=== PATIENT | female | born 1965 | race Caucasian/White ===

== ENCOUNTER 2017-12-01 20:42 | Emergency (ER) | payer SELFPAY ==
[2017-12-01 20:49] VITALS: BP 166/72; BMI 27.4
--- NOTE | 2017-12-01 22:55 | DR.GENAD ---
HPI - PCP Primary Care Physician: ORIN ADAIR - Complaint/Symptoms Chief Complaint Doctors Comments: Patient admits to menstrual cycle for two weeks. Heavy. 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 Chief Complaint:: PERIOD X 2 WEEKS; CRAMPING TO LOWER ABDOMEN AND BACK; NO OB DR ; CAN'T REMEMBER LAST TIME SHE HAD PELVIC EXAM Self Treatment fo Chief Complaint: NO TREATMENT - Source History Provided: Patient - Mode of Arrival Mode of Arrival: Ambulatory - Timing Onset of Chief Complaint: 11/17/17 PMH - PMH Past Medical History: Yes Past Medical History: Anxiety, Diabetes, Hypertension Past Surgical History: Yes Surgical History: - Family History History of Family Medical Conditions: No Family Medical History: Diabetes Mellitus, [place], Hypertension - Social History Alcohol Use: None Do you use any recreational Drugs:: No Lives With: Alone Lives Where: Home - infectious screening In the last 2 months have you had wt loss of >10#?: NO Have you had fever, night sweats or hemotysis?: No Have you traveled outside the country in the last 6 months?: No Isolation: Standard ROS - Review of Systems Eyes: No Symptoms Reported ENTM: No Symptoms Reported Respiratoy: No Symptoms Reported Cardiovascular: No Symptoms Reported Gastrointestinal/Abdominal: No Symptoms Reported Genitourinary: No Symptoms Reported Neurological: No Symptoms Reported Musculoskeletal: No Symptoms Reported Integumentary: No Symptoms Reported Hematologic/Lymphatic: No Symptoms Reported Endocrine: No Symptoms Reported PE - Vital Signs Vitals: Temperature 98.6 F Pulse Rate 73 Respiratory Rate 22 Blood Pressure 166/72 O2 Sat by Pulse Oximetry 98 - General Limitations: No Limitations General Appearance: Alert, In No Apparent Distress - Head Head Exam: Normal Inspection, Atraumatic - Eyes Eye exam: Normal Appearance, PERRL, EOMI - ENT ENT Exam: Normal Exam External Ear Exam: Normal External Inspection TM/Canal Exam: Bilateral Normal Nose Exam: Normal Nose Exam Mouth Exam: Normal Inspection Throat Exam: Normal Inspection - Neck Neck Exam: Normal Inspection, Full ROM - Chest Chest Inspection: Normal Inspection - Respiratory Respiratory Exam: Normal Lung Sounds Bilat Respiratory Exam: Bilateral Clear to Auscultation - Cardiovascular Cardiovascular Exam: Regular Rate, Normal Rhythm - Abdominal Exam Abdominal Exam: Normal Inspection, Normal Bowel Sounds Abdominal Tenderness: negative: RUQ, RLQ, LUQ, LLQ, Epigastrium, Suprapubic, Diffuse, Mild, Moderate, Severe, Other - Extremities Extremities Exam: Normal Inspection, Full ROM - Back Back Exam: Normal Inspection, Full ROM - Neurologic Neurological Exam: Alert, Oriented X3, CN II-XII Intact - Psychiatric Psychiatric Exam: Normal Affect, Normal Mood - Skin Skin Exam: Warm, Dry, Intact ROR - Labs Reviewed Result Diagrams: 12/01/17 23:00 12/01/17 23:00 Laboratory: WBC 9.9 X10^3/uL (3.6-10.0) 12/01/17 23:00 RBC 5.38 X10^6/uL (3.5-5.4) 12/01/17 23:00 Hgb 12.4 g/dL (12.0-16.0) 12/01/17 23:00 Hct 38.9 % (36.0-47.0) 12/01/17 23:00 MCV 72.2 fL (80.0-100.0) L 12/01/17 23:00 MCH 23.0 pg (27.0-34.0) L 12/01/17 23:00 MCHC 31.9 g/dL (33.0-35.0) L 12/01/17 23:00 RDW 17.4 % (11.6-16.5) H 12/01/17 23:00 Plt Count 188 X10^3/uL (150.0-450.0) 12/01/17 23:00 Plt Count Comment Adequate (ADEQUATE) 12/01/17 23:00 MPV 10.9 fL (7.4-11.0) 12/01/17 23:00 Neut % 55.5 % (42.0-75.0) 12/01/17 23:00 Lymph % 32.9 % (21.0-51.0) 12/01/17 23:00 Wilson % 6.5 % (0.0-13.0) 12/01/17 23:00 Eos % 3.8 % (0.9-2.9) H 12/01/17 23:00 Baso % 1.3 % (0.2-1.0) H 12/01/17 23:00 Neut # 5.5 x10^3/uL (2.2-4.8) H 12/01/17 23:00 Lymph # 3.3 X10^3/uL (1.3-2.9) H 12/01/17 23:00 Wilson # 0.6 x10^3/uL (0.3-0.8) 12/01/17 23:00 Eos # 0.4 x10^3/uL (0.0-0.2) H 12/01/17 23:00 Baso # 0.1 X10^3/uL (0.0-0.1) 12/01/17 23:00 Absolute Nucleated RBC 0.1 /100WBC 12/01/17 23:00 Plt Morphology Comment Normal (NORMAL) 12/01/17 23:00 RBC Morphology Abnormal (NORMAL) A 12/01/17 23:00 Hypochromasia 1+ A 12/01/17 23:00 INR Target Range - 12/01/17 23:00 INR 1.08 (0.8-1.3) 12/01/17 23:00 PTT 27.4 SECONDS (22.9-36.5) 12/01/17 23:00 PTT Comment - 12/01/17 23:00 Sodium 135 mmol/L (136-145) L 12/01/17 23:00 Corrected Sodium 141 mmol/L (136-145) 12/01/17 23:00 Potassium 4.1 mmol/L (3.5-5.1) 12/01/17 23:00 Chloride 100 mmol/L (98-107) 12/01/17 23:00 Carbon Dioxide 27.1 mmol/L (21-32) 12/01/17 23:00 BUN 12 mg/dL (7-18) 12/01/17 23:00 Creatinine 0.93 mg/dL (0.55-1.02) 12/01/17 23:00 Est GFR (MDRD) Af Amer > 60 (>60) 12/01/17 23:00 Est GFR (MDRD) Non-Af > 60 (>60) 12/01/17 23:00 Glucose 362 mg/dL (65-99) H 12/01/17 23:00 Calcium 8.5 mg/dL (8.5-10.1) 12/01/17 23:00 - Diagnosis Discharge Problem: Dysfunctional uterine bleeding - Discharge Plan Condition: Stable - Follow ups/Referrals Follow ups/Referrals: MEMO ADAIR [Primary Care Provider] - 3 days - Instructions
[2017-12-01 23:23] LABS: BASOPHILS # (AUTO) 0.1 X10^3/uL (0.0-0.1); BASOPHILS % (AUTO) 1.3 % (0.2-1.0); EOSINOPHILS # (AUTO) 0.4 x10^3/uL (0.0-0.2); EOSINOPHILS % (AUTO) 3.8 % (0.9-2.9); HEMATOCRIT 38.9 % (36.0-47.0); HEMOGLOBIN 12.4 g/dL (12.0-16.0); LYMPHOCYTES # (AUTO) 3.3 X10^3/uL (1.3-2.9); LYMPHOCYTES % (AUTO) 32.9 % (21.0-51.0); MEAN CORPUSCULAR HGB CONC 31.9 g/dL (33.0-35.0); MEAN CORPUSCULAR VOLUME 72.2 fL (80.0-100.0); MEAN PLATELET VOLUME 10.9 fL (7.4-11.0); MONOCYTES # (AUTO) 0.6 x10^3/uL (0.3-0.8); MONOCYTES % (AUTO) 6.5 % (0.0-13.0); NEUTROPHILS # (AUTO) 5.5 x10^3/uL (2.2-4.8); NEUTROPHILS % (AUTO) 55.5 % (42.0-75.0); PLATELET COUNT 188 X10^3/uL (150.0-450.0); RED BLOOD COUNT 5.38 X10^6/uL (3.5-5.4); RED CELL DISTRIBUTION WIDTH 17.4 % (11.6-16.5); WHITE BLOOD COUNT 9.9 X10^3/uL (3.6-10.0)
[2017-12-01 23:39] LABS: BLOOD UREA NITROGEN 12 mg/dL (7-18); CALCIUM 8.5 mg/dL (8.5-10.1); CARBON DIOXIDE 27.1 mmol/L (21-32); CHLORIDE 100 mmol/L (98-107); COR NA(FOR HYPERGLY) 141 mmol/L (136-145); CREATININE 0.93 mg/dL (0.55-1.02); SODIUM 135 mmol/L (136-145); eGFR BLACK RACES > 60 (>60); eGFR NON BLACK RACES > 60 (>60)
[2017-12-01 23:43] LABS: HYPOCHROMASIA 1+; PLATELET MORPHOLOGY COMMENT NORMAL (NORMAL)
== END 2017-12-02 00:32 | disposition home or self-care (01) ==
LOC: ER 20:51
DX: N93.8 Other specified abnormal uterine and vaginal bleeding (principal)
CPT/HCPCS: 36415; 80048; 85025; 85610; 85730; 99282

== ENCOUNTER 2018-01-13 20:19 | Emergency (ER) | payer SELFPAY ==
[2018-01-13 20:24] VITALS: BMI 27.4
[2018-01-13] MEDS ORDERED: NORFLEX INJ IM ONE (21:35)
[2018-01-13] MEDS ORDERED: TORADOL 60 MG VIAL IM ONE (21:35)
--- NOTE | 2018-01-13 21:37 | DR.GENAD ---
HPI - Complaint/Symptoms Chief Complaint:: PT C/O LT SHOULDER AND LOWER BACK PAIN. ONSET OVER A MONTH. DENIES INJURY. Self Treatment fo Chief Complaint: T - Source History Provided: Patient - Mode of Arrival Mode of Arrival: Ambulatory - Timing Onset of Chief Complaint: 01/13/18 PMH - PMH Past Medical History: Yes Past Medical History: Anxiety, Diabetes, Hypertension Past Surgical History: Yes Surgical History: - Family History History of Family Medical Conditions: Yes Family Medical History: Diabetes Mellitus, [place], Hypertension - Social History Do you use any recreational Drugs:: No - infectious screening Have you traveled outside the country in the last 6 months?: No PE - Vital Signs Vitals: Temperature 98.3 F Pulse Rate 96 Respiratory Rate 18 Blood Pressure 144/68 O2 Sat by Pulse Oximetry 99 - Diagnosis Discharge Problem: Shoulder sprain Qualifiers: Encounter type: initial encounter Shoulder sprain type: other part of shoulder region Laterality: left Qualified Code(s): S43.492A - Other sprain of left shoulder joint, initial encounter Strain of thoracic spine Qualifiers: Encounter type: initial encounter Qualified Code(s): S29.019A - Strain of muscle and tendon of unspecified wall of thorax, initial encounter Back pain Qualifiers: Back pain location: thoracic back pain Chronicity: acute Back pain laterality: bilateral Qualified Code(s): M54.6 - Pain in thoracic spine - Discharge Plan Condition: Stable Prescriptions: Cyclobenzaprine HCl [FLEXERIL 10 MG *] 10 mg PO TID #20 tab Ibuprofen [MOTRIN TAB 800 MG *] 800 mg PO Q8H PRN #30 tab PRN Reason: Pain/Inflammation - Follow ups/Referrals Follow ups/Referrals: MEMO ADAIR [Primary Care Provider] - 3 days - Instructions Additional Instructions: RETURN TO ED IF WORSE.
[2018-01-13] MEDS ORDERED: TORADOL 60 MG VIAL ONE (21:59)
[2018-01-13] MEDS ORDERED: NORFLEX INJ ONE (21:59)
--- NOTE | 2018-01-13 22:09 | RAD ---
Three views of the left shoulder. Indication: Left shoulder pain Findings: No acute fracture dislocation within the left shoulder. AC and glenohumeral joint spaces ar e preserved. There is heterotopic ossification along the undersurface of the distal clavicle at the a ttachment of the coracoclavicular ligament consistent with chronic sprain/tear. No significant elevat ion of the distal clavicle. No displaced left-sided rib fracture is identified. Impression: 1.No acute fracture or dislocation within the left shoulder. No localizing soft tissue swelling. 2. Heterotopic ossification along the undersurface of the distal clavicle likely represent sequela of chronic sprain/tear of the coracoclavicular ligament. Reported By:
--- NOTE | 2018-01-13 22:10 | RAD ---
Thoracic spine, AP and lateral Indication: Left shoulder pain. Comparison: None Findings: The upper thoracic spine is obscured on the lateral views. No significant vertebral body he ight loss or malalignment of the visualized thoracic spine identified. There is mild multilevel disco genic degenerative disease. Impression: No evidence for acute thoracic spine injury, although the upper thoracic spine is incompletely visual ized. Multilevel spondylosis. Reported By:
[2018-01-13 22:56] VITALS: BP 136/72
== END 2018-01-13 22:50 | disposition home or self-care (01) ==
LOC: ER 20:28
DX: S43.492A Other sprain of left shoulder joint, initial encounter (principal); S29.019A Strain of muscle and tendon of unspecified wall of thorax, initial encounter; M54.6 Pain in thoracic spine; M47.812 Spondylosis without myelopathy or radiculopathy, cervical region; Y33.XXXA Other specified events, undetermined intent, initial encounter; Y92.9 Unspecified place or not applicable
CPT/HCPCS: 72072; 73030; 96372; 99282; J1885; J2360

== ENCOUNTER 2018-02-13 15:34 | Emergency (ER) | payer SELFPAY ==
[2018-02-13 15:43] VITALS: BP 142/73; BMI 26.3
[2018-02-13 16:38] LABS: BILIRUBIN,URINE NEGATIVE (NEGATIVE); BLOOD/HEMOGLOBIN,URINE 2+ (NEGATIVE); GLUCOSE, URINE 4+ (NEGATIVE); KETONES,URINE NEGATIVE (NEGATIVE); LEUKOCYTE ESTERASE ,URINE 2+ (NEGATIVE); NITRITES,URINE NEGATIVE (NEGATIVE); PROTEIN,URINE NEGATIVE (NEGATIVE); UROBILINOGEN,URINE NORMAL (NORMAL)
[2018-02-13 16:48] LABS: APPEARANCE,URINE HAZY (CLEAR); COLOR,URINE YELLOW (YELLOW)
[2018-02-13 16:49] LABS: BACTERIA,URINE 1+ /HPF (NEGATIVE); SQUAMOUS EPITHELIAL CELL,UR FEW /HPF (NEGATIVE)
--- NOTE | 2018-02-13 17:33 | DR.GENAD ---
HPI - PCP Primary Care Physician: DR. ADAIR - Complaint/Symptoms Chief Complaint:: PT STATES "EVERY TIME I PEE IT COLON" Self Treatment fo Chief Complaint: PT STATES "I'VE BEEN TAKING CRANBERRY JUICE AND WATER TRYING TO FLUSH IT OUT, AND IT IS JUST GETTING WORSE. AND IT ITCHES DOWN THERE" - Source History Provided: Patient - Mode of Arrival Mode of Arrival: Ambulatory - Timing Onset of Chief Complaint: 01/30/18 PMH - PMH Past Medical History: Yes Past Medical History: Anxiety, Arthritis, Diabetes, Dyslipidemia, Hypertension Past Surgical History: Yes Surgical History: - Family History History of Family Medical Conditions: Yes Family Medical History: Diabetes Mellitus, Hypertension - Social History Does patient currently use any type of tobacco product: No Have you used tobacco products in the last 12 months: No Type of Tobacco Use: Cigarettes Does any household member use tobacco: No Alcohol Use: None Do you use any recreational Drugs:: No Lives With: Friend Lives Where: Home - infectious screening Have you traveled outside the country in the last 6 months?: No Isolation: Standard ROS - Review of Systems Eyes: No Symptoms Reported ENTM: No Symptoms Reported Respiratoy: No Symptoms Reported Cardiovascular: No Symptoms Reported Gastrointestinal/Abdominal: No Symptoms Reported Genitourinary: Dysuria Neurological: No Symptoms Reported Musculoskeletal: No Symptoms Reported Integumentary: No Symptoms Reported Hematologic/Lymphatic: No Symptoms Reported Endocrine: No Symptoms Reported Psychiatric: No Symptoms Reported All Other Systems: Reviewed and Negative PE - Vital Signs Vitals: Temperature 98.3 F Pulse Rate 92 Respiratory Rate 20 Blood Pressure [Left Arm] 136/72 Blood Pressure 142/73 O2 Sat by Pulse Oximetry 97 - General Limitations: No Limitations General Appearance: Alert, In No Apparent Distress - Head Head Exam: Normal Inspection, Atraumatic - Eyes Eye exam: Normal Appearance, PERRL, EOMI - ENT ENT Exam: Normal Exam External Ear Exam: Normal External Inspection TM/Canal Exam: Bilateral Normal Nose Exam: Normal Nose Exam Mouth Exam: Normal Inspection Throat Exam: Normal Inspection - Neck Neck Exam: Normal Inspection, Full ROM - Chest Chest Inspection: Normal Inspection - Respiratory Respiratory Exam: Normal Lung Sounds Bilat Respiratory Exam: Bilateral Clear to Auscultation - Cardiovascular Cardiovascular Exam: Regular Rate, Normal Rhythm - Extremities Extremities Exam: Normal Inspection, Full ROM - Back Back Exam: Normal Inspection, Full ROM - Neurologic Neurological Exam: Alert, Oriented X3 - Skin Skin Exam: Warm, Dry, Intact ROR - Labs Reviewed Laboratory Results Reviewed?: Yes (UA:2+bld,2+leuk) Laboratory: Specimen Type Clean catch urine 02/13/18 16:27 Urine Color Yellow (YELLOW) 02/13/18 16:27 Urine Appearance Hazy (CLEAR) 02/13/18 16:27 Urine pH 5.0 (5.0 - 8.0) 02/13/18 16:27 Ur Specific [place] 1.015 (1.000-1.030) 02/13/18 16:27 Urine Protein Negative (NEGATIVE) 02/13/18 16:27 Urine Glucose (UA) 4+ (NEGATIVE) 02/13/18 16:27 Urine Ketones Negative (NEGATIVE) 02/13/18 16:27 Urine Occult Blood 2+ (NEGATIVE) 02/13/18 16:27 Urine Nitrite Negative (NEGATIVE) 02/13/18 16:27 Urine Bilirubin Negative (NEGATIVE) 02/13/18 16:27 Urine Urobilinogen Normal (NORMAL) 02/13/18 16:27 Ur Leukocyte Esterase 2+ (NEGATIVE) 02/13/18 16:27 Urine RBC 5-10 /HPF (NONE SEEN) 02/13/18 16:27 Urine WBC 3-5 /HPF (NONE SEEN) 02/13/18 16:27 Ur Squamous Epith Cells Few /HPF (NEGATIVE) 02/13/18 16:27 Urine Bacteria 1+ /HPF (NEGATIVE) 02/13/18 16:27 Ur Culture Indicated? No/not indicated 02/13/18 16:27 - Diagnosis Discharge Problem: Glucosuria UTI (urinary tract infection) Qualifiers: Urinary tract infection type: acute cystitis Hematuria presence: with hematuria Qualified Code(s): N30.01 - Acute cystitis with hematuria - Discharge Plan Condition: Stable - Follow ups/Referrals Follow ups/Referrals: MEMO ADAIR [Primary Care Provider] - 3 days - Instructions
== END 2018-02-13 17:49 | disposition home or self-care (01) ==
LOC: ER 15:46
DX: N30.01 Acute cystitis with hematuria (principal); R81 Glycosuria
CPT/HCPCS: 81001; 99281; 99282

== ENCOUNTER 2018-03-10 14:50 | Emergency (ER) | payer SELFPAY ==
[2018-03-10 14:56] VITALS: BP 140/75; BMI 26.3
--- NOTE | 2018-03-10 15:43 | DR.EXTPAIN ---
HPI - Time seen Time seen: 15:30 - PCP Primary Care Physician: petra - Complaint/Symptoms Chief Complaint Doctor Comments: Hx. as noted below. These are chronic issues. She states that she has not discussed these with her PCP as she can't afford to go see him. The pain bothers her and interfares with her sleep. Chief Complaint:: patient stated her left leg has been hurting for 2 weeks but this morning it got worse, and lower back pain, pain in both arms and left index finger has no feeling. - Nurses notes reviewed Nurses Notes Review: Yes - Source History Provided: Patient - Mode of arrival Mode of Arrival: Ambulatory - Timing Onset of Chief Complaint: 02/24/18 PMH - PMH Past Medical History: Yes Past Medical History: Anxiety, Arthritis, Diabetes, Dyslipidemia, Hypertension Past Surgical History: Yes Surgical History: - Family History History of Family Medical Conditions: Yes Family Medical History: Diabetes Mellitus, Hypertension - Social History Does patient currently use any type of tobacco product: Yes Have you used tobacco products in the last 12 months: Yes Type of Tobacco Use: Cigarettes How many years tobacco product used: 30 Does any household member use tobacco: Yes Alcohol Use: None Do you use any recreational Drugs:: No Lives With: Family Lives Where: Home - infectious screening In the last 2 months have you had wt loss of >10#?: NO Have you had fever, night sweats or hemotysis?: No Have you traveled outside the country in the last 6 months?: No Isolation: Standard ROS - Review of Systems Constitutional: No Symptoms Reported Eyes: No Symptoms Reported ENTM: No Symptoms Reported Respiratoy: No Symptoms Reported Cardiovascular: No Symptoms Reported Gastrointestinal/Abdominal: No Symptoms Reported Genitourinary: No Symptoms Reported Neurological: No Symptoms Reported Musculoskeletal: Back Pain, Arm (bilateral), Leg (left) Integumentary: No Symptoms Reported Hematologic/Lymphatic: No Symptoms Reported Endocrine: No Symptoms Reported Psychiatric: No Symptoms Reported All Other Systems: Reviewed and Negative PE - Vital Signs Vitals: Temperature 98.6 F Pulse Rate 78 Respiratory Rate 16 Blood Pressure [Left Arm] 136/72 Blood Pressure 140/75 O2 Sat by Pulse Oximetry 99 - General Limitations: No Limitations General Appearance: Alert, In No Apparent Distress - Head Head Exam: Normal Inspection - Eyes Eye exam: Normal Appearance - ENT ENT Exam: Normal Exam - Neck Neck Exam: Normal Inspection - Chest Chest Inspection: Normal Inspection, Symmetric Chest Wall Rise - Respiratory Respiratory Exam: Normal Lung Sounds Bilat - Cardiovascular Cardiovascular Exam: Regular Rate, Normal Rhythm, Normal Heart Sounds, +S1, +S2 - Abdominal Exam Abdominal Exam: Normal Inspection, Normal Bowel Sounds, Soft - Extremities Extremities Exam: Normal Inspection, Full ROM - Back Back Exam: Normal Inspection, Paraspinal Tenderness - Neurological Neurological Exam: Alert, Oriented X3, CN II-XII Intact - Psychiatric Psychiatric Exam: Normal Affect, Normal Mood - Skin Skin Exam: Warm, Dry, Intact, Normal Color - Diagnosis Discharge Problem: Chronic pain of multiple joints - Discharge Plan Disposition: 30 STILL A PATIENT Condition: Stable - Follow ups/Referrals Follow ups/Referrals: MEMO ADAIR [Primary Care Provider] - 3 days - Instructions Instructions: What You Need to Know About Chronic Back Pain
[2018-03-10] MEDS ORDERED: TORADOL 60 MG VIAL IM ONE (15:47)
[2018-03-10] MEDS ORDERED: TORADOL 60 MG VIAL ONE (16:09)
== END 2018-03-10 16:31 | disposition home or self-care (01) ==
LOC: ER 14:58
DX: M25.50 Pain in unspecified joint (principal)
CPT/HCPCS: 96372; 99282; J1885